=== PATIENT | female | born 1990 | race Caucasian/White ===

== ENCOUNTER 2018-03-08 09:37 | Emergency (ER) | payer SELFPAY ==
[2018-03-08 10:12] VITALS: BP 101/51; PULSE 74; TEMP 98.4; BMI 25.8
[2018-03-08] MEDS ORDERED: KETOROLAC TROMETHAMINE 30 MG/1 ML VIAL IVPUSH ONE (10:14)
[2018-03-08] MEDS ORDERED: KETOROLAC TROMETHAMINE 30 MG/1 ML VIAL ONE (10:15)
[2018-03-08 10:34] LABS: BASO % 1.1 % (0-2.0); EOS % 3.7 % (0-4.5); HEMATOCRIT 38.6 % (32.4-45.2); HEMOGLOBIN 13.4 GM/dl (10.7-15.3); LYMPH % 19.2 % (8-40); MCH 31.6 pg (25.7-33.7); MCHC 34.7 g/dl (32.0-36.0); MEAN CELL VOLUME 91.1 fl (80-96); MEAN PLT VOLUME 8.3 fl (7.5-11.1); MONO % 6.4 % (3.8-10.2); NEUT % 69.6 % (42.8-82.8); PLATELET COUNT 329 K/MM3 (134-434); RBC 4.23 M/mm3 (3.60-5.2); WHITE BLOOD COUNT 11.2 K/mm3 (4.0-10.8)
[2018-03-08 10:40] LABS: ALK PHOS 51 U/L (32-92); ANION GAP 6 (8-16); BILIRUBIN,TOTAL 0.5 mg/dl (0.2-1.0); BLOOD UREA NITROGEN 8 mg/dl (7-18); CALCIUM 8.7 mg/dl (8.4-10.2); CHLORIDE 104 mmol/L (98-107); CO2 25 mmol/L (22-28); GLUCOSE,RANDOM 98 mg/dl (74-106); POTASSIUM 3.9 mmol/L (3.5-5.1); SGOT/AST 16 U/L (10-42); SGPT/ALT 13 U/L (10-40); SODIUM 135 mmol/L (136-145); TOT PROT 6.5 g/dl (6.4-8.3)
[2018-03-08 10:41] LABS: HCG,QUALITATIVE URINE NEGATIVE; PH,URINE 5.5 (4.5-8); URINE APPEARANCE CLOUDY; URINE BILIRUBIN NEGATIVE (NEGATIVE); URINE COLOR YELLOW; URINE GLUCOSE (UA) NEGATIVE (NEGATIVE); URINE KETONE NEGATIVE (NEGATIVE); URINE LEUK ESTERASE 1+ (NEGATIVE); URINE NITRITE NEGATIVE (NEGATIVE); URINE PROTEIN NEGATIVE (NEGATIVE); URINE UROBILINOGEN 0.2 (0.2-1.0)
[2018-03-08 10:47] LABS: CREATININE < 0.8 mg/dl (0.6-1.3)
[2018-03-08 11:38] LABS: EPI CELLS FEW /HPF; URINE BACTERIA NONE SEEN /hpf (NEGATIVE); URINE RBC 0-3 /hpf (0-3); URINE WBC 0-3 (0-5)
--- NOTE | 2018-03-08 12:00 | PDOC ---
History of Present Illness - General Chief Complaint: Pain Stated Complaint: ABD PAIN Time Seen by Provider: 03/08/18 09:43 History Source: Patient Exam Limitations: No Limitations - History of Present Illness Initial Comments: 03/08/18 11:55 28-year-old female no past medical history here today complaining of abdominal pain. Patient states she was recently treated for a UTI and finished antibiotics a few days ago. Denies any vomiting but does report mild nausea. Chills but no fevers. Denies any current urinary complaints. No vaginal discharge. Does have a history of ovarian cysts no previous surgeries. Pain is described as left sided left upper quadrant radiating to her flank. No moderating factors. Is not seemed to be associated with food. Pain is constant but does have fluctuations where it is worsening since she is not currently her last menstrual was 2 weeks ago states that she has had similar pain 3-4 times in the past for at one point she was evaluated in November [facility] for she had a CT abdomen and pelvis which was unremarkable stated that she was told she had a renal cyst but is otherwise unclear of the results. Was told that she needs to follow-up with a rn maternity however she has not done so as of yet Past History - Past Medical History Allergies/Adverse Reactions: Allergies Allergy/AdvReac Type Severity Reaction Status Date / Time Sulfa (Sulfonamide Allergy Severe Difficulty Verified 03/08/18 09:39 Antibiotics) Breathing Home Medications: Ambulatory Orders Ibuprofen [Motrin -] 600 mg PO TID PRN #90 tablet 03/08/18 Levothyroxine [Synthroid -] 125 mcg PO DAILY 03/08/18 COPD: No Thyroid Disease: Yes - Surgical History Abdominal Surgery: Yes - Suicide/Smoking/Psychosocial Hx Smoking History: Never smoked Have you smoked in the past 12 months: No Information on smoking cessation initiated: No Hx Alcohol Use: No Drug/Substance Use Hx: No Substance Use Type: None Review of Systems - Review of Systems Constitutional: Yes: Chills. No: Diaphoresis, Fever Respiratory: No: Orthopnea, Shortness of Breath ABD/GI: Yes: Nausea. No: Poor Appetite, Poor Fluid Intake, Vomiting : No: Burning, Dysuria, Discharge, Urgency Musculoskeletal: Yes: Back Pain All Other Systems: Reviewed and Negative *Physical Exam - Vital Signs Last Vital Signs Temp Pulse Resp BP Pulse Ox 98.4 F 74 20 101/51 99 05/13/18 09:37 03/08/18 09:37 03/08/18 09:37 03/08/18 09:37 03/08/18 09:37 - Physical Exam General Appearance: Yes: Appropriately Dressed Neck: positive: Trachea midline Respiratory/Chest: positive: Lungs Clear, Normal Breath Sounds Cardiovascular: positive: Regular Rhythm, Regular Rate, S1, S2 Gastrointestinal/Abdominal: positive: Normal Bowel Sounds, Tender (left mid upper quad ttp, no rebound no guarding. left cva tenderness.) Musculoskeletal: positive: Normal Inspection, CVA Tenderness (L) Extremity: positive: Normal Capillary Refill, Normal Inspection Integumentary: positive: Normal Color, Dry, Warm Neurologic: positive: Fully Oriented, Alert, Normal Mood/Affect, Other (gait normal) ED Treatment Course - LABORATORY CBC & Chemistry Diagram: 03/08/18 10:11 03/08/18 10:11 - ADDITIONAL ORDERS Additional order review: Laboratory Results 03/08/18 03/08/18 10:11 10:11 Sodium 135 L Potassium 3.9 Chloride 104 Carbon Dioxide 25 Anion Gap 6 L BUN 8 Creatinine < 0.8 Creat Clearance w eGFR > 60 Random Glucose 98 Calcium 8.7 Total Bilirubin 0.5 AST 16 ALT 13 Alkaline Phosphatase 51 Total Protein 6.5 Albumin 4.0 Urine Color Yellow Urine Appearance Cloudy Urine pH 5.5 Ur Specific [place] 1.015 Urine Protein Negative Urine Glucose (UA) Negative Urine Ketones Negative Urine Blood Trace-intact H Urine Nitrite Negative Urine Bilirubin Negative Urine Urobilinogen 0.2 Ur Leukocyte Esterase 1+ H Urine RBC 0-3 Urine WBC 0-3 Ur Epithelial Cells Few Urine Bacteria None seen Urine HCG, Qual Negative 03/08/18 10:11 RBC 4.23 MCV 91.1 MCHC 34.7 RDW 13.0 MPV 8.3 Neutrophils % 69.6 Lymphocytes % 19.2 Monocytes % 6.4 Eosinophils % 3.7 Basophils % 1.1 - RADIOLOGY Radiology Studies Ordered: Category Date Time Status SPIRAL- RENAL-STONE CT [CT] Stat CT Scan 03/08/18 10:11 Taken - Medications Given in the ED: ED Medications Discontinued Medications Generic Name Dose Route Start Last Admin Trade Name Freq PRN Reason Stop Dose Admin Ketorolac Tromethamine 30 mg 03/08/18 10:14 03/08/18 10:20 Toradol Injection - IVPUSH 03/08/18 10:15 30 mg ONCE ONE Administration Medical Decision Making - Medical Decision Making 03/08/18 11:59 differential diagnosis diverticulitis, renal colic, pyelo uti . ovarian cyst. irritable bowel, gas cramps. plan ua labs ct a/p 03/08/18 14:27 ct with no stone, complex appearing ovary. us obtained. small free fluid in [place], likley ruptured ovarian cyst on left ovary. plan dc home. motrin and fu obgyn. labs unremarkable. ua negative. 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 call to schedule. you can take ibuprofen for your pain 600 mg every 8 hrs as needed for pain. return for any problems or concerns. - Post Discharge Activity
== END 2018-03-08 15:54 | disposition home or self-care (01) ==
LOC: FER 09:37
PROC: 3E0333Z Introduction of Anti-inflammatory into Peripheral Vein, Percutaneous Approach (ICD-10-PCS; principal; 2018-03-08)
DX: N83.209 Unspecified ovarian cyst, unspecified side (principal); E07.9 Disorder of thyroid, unspecified
CPT/HCPCS: 36415; 74176; 76830-TC; 80053; 81003; 81015; 84703; 85025; 87086; 99283-25

== ENCOUNTER 2018-03-18 12:39 | Day surgery (SDC) | payer OTHER ==
[2018-03-18 13:30] VITALS: BMI 25.8
[2018-03-18] MEDS ORDERED: PROPOFOL 20 ML ONE ×2 (13:32)
--- NOTE | 2018-03-18 14:23 | PROC ---
Endoscopy Procedure Endoscopy procedure completed. Please see scanned procedure report.
[2018-03-18 14:32] VITALS: TEMP 97.9
[2018-03-18 15:19] VITALS: BP 103/60; PULSE 47
--- NOTE | 2018-03-19 18:00 | PATH ---
Surgical Pathology Report Patient Name: YUSRA EID [facility]. Rec. #: [id number] /Age/Gender: 1990 (Age: 28) / F Account: [id number] Location: [facility]-ENDOSCOPY Taken: 03/18/2018 Received: 03/18/2018 Reported: 03/19/2018 Physicians: Heam Frankel M.D. Specimen(s) Received A: BX TERMINAL ILEUM B: BX ASCENDING COLON C: BX TRANSVERSE COLON D: BX DESCENDING COLON E: BX SIGMOID F: BX RECTUM Clinical History He Abdominal pain Final Diagnosis A. TERMINAL ILEUM, BIOPSY: ILEAL MUCOSA WITHOUT SIGNIFICANT PATHOLOGIC FINDINGS. B. ASCENDING COLON, BIOPSY: POLYPOID COLONIC MUCOSA WITH PROMINENT LYMPHOID AGGREGATE. C. TRANSVERSE COLON BIOPSY: POLYPOID COLONIC MUCOSA WITH PROMINENT LYMPHOID AGGREGATES. D. DESCENDING COLON, BIOPSY: POLYPOID COLONIC MUCOSA WITHOUT SIGNIFICANT PATHOLOGIC FINDINGS. E. SIGMOID COLON, BIOPSY: POLYPOID COLONIC MUCOSA WITH PROMINENT LYMPHOID AGGREGATE. F. RECTUM, BIOPSY: POLYPOID COLONIC MUCOSA WITH PROMINENT LYMPHOID AGGREGATE. Electronically Signed Teri Cano M.D. Gross Description A. Received in formalin, labeled "terminal ileum" are 2 flower, irregular portions of soft tissue averaging 0.4 cm. in greatest dimension. The specimens are submitted in toto in one cassette. B. Received in formalin, labeled "biopsy ascending colon" are 2 flower, irregular portions of soft tissue measuring 0.4 and 0.7 cm. in greatest dimension. The specimens are submitted in toto in one cassette. C. Received in formalin, labeled "biopsy transverse colon" are 2 flower, irregular portions of soft tissue measuring 0.3 and 0.8 cm. in greatest dimension. The specimens are submitted in toto in one cassette. D. Received in formalin, labeled "biopsy descending colon" are 3 flower, irregular portions of soft tissue ranging from 0.3-0.5 cm. in greatest dimension. The specimens are submitted in toto in one cassette. E. Received in formalin, labeled "biopsy sigmoid" is a flower, irregular portion of soft tissue measuring 0.4 cm. in greatest dimension. The specimen is submitted in toto in one cassette. F. Received in formalin, labeled "biopsy rectum" are 2 flower, irregular portions of soft tissue measuring 0.3 and 0.5 cm. in greatest dimension. The specimens are submitted in toto in one cassette. 03/19/201803/19/2018
== END 2018-03-18 15:23 | disposition home or self-care (01) ==
LOC: JASU-ENDO 12:39
PROVIDERS: ATTEND Internal Medicine Gastroenterology
PROC: 0DBL8ZX Excision of Transverse Colon, Via Natural or Artificial Opening Endoscopic, Diagnostic (ICD-10-PCS; 2018-03-18)
PROC: 0DBN8ZX Excision of Sigmoid Colon, Via Natural or Artificial Opening Endoscopic, Diagnostic (ICD-10-PCS; 2018-03-18)
PROC: 0DBP8ZX Excision of Rectum, Via Natural or Artificial Opening Endoscopic, Diagnostic (ICD-10-PCS; 2018-03-18)
PROC: 0DBB8ZX Excision of Ileum, Via Natural or Artificial Opening Endoscopic, Diagnostic (ICD-10-PCS; 2018-03-18)
PROC: 0DBM8ZX Excision of Descending Colon, Via Natural or Artificial Opening Endoscopic, Diagnostic (ICD-10-PCS; 2018-03-18)
PROC: 0DBK8ZX Excision of Ascending Colon, Via Natural or Artificial Opening Endoscopic, Diagnostic (ICD-10-PCS; principal; 2018-03-18 12:30)
DX: K63.89 Other specified diseases of intestine (principal); R19.4 Change in bowel habit; R10.9 Unspecified abdominal pain
CPT/HCPCS: 84703; 88305-TC